=== PATIENT | male | born 1995 | race African-American/Black ===

== ENCOUNTER 2016-11-02 22:38 | Inpatient (IN) | payer MEDICAID ==
[~2016-11-02] VITALS: Ht 193 cm; Wt 100.3 kg
[~2016-11-02 22:38] MED LIST: DIVA500T69 PO; FLUO-191 PO; RISP3 PO; TRAZ-147 PO
[2016-11-02 23:48] LABS: BASOPHILS % (AUTO) 2.7 % (0.0-2.0); EOSINOPHILS % (AUTO) 3.3 % (1.0-6.0); HEMATOCRIT 45.8 % (41-53); LYMPHOCYTES # (AUTO) 2.8 K/uL (1.0-4.8); LYMPHOCYTES % (AUTO) 46.9 % (22.0-44.0); MEAN CORPUSCULAR HGB CONC 32.7 G/dL (31.0-37.0); MEAN CORPUSCULAR VOLUME 76 fL (80-100); MONOCYTES # (AUTO) 0.6 K/uL (0.1-1.0); MONOCYTES % (AUTO) 10.4 % (2.0-9.0); NEUTROPHILS # (AUTO) 2.2 K/uL (1.8-7.7); NEUTROPHILS % (AUTO) 36.7 % (40.0-70.0); PLATELET COUNT (AUTO) 261 K/uL (150-450); RED BLOOD CELL COUNT(AUTO) 5.99 MIL/uL (4.50-5.90); RED CELL DISTRIBUTION WIDTH 14.8 % (11.5-14.5)
[2016-11-02 23:56] LABS: ANION GAP 7 mmol/L (8-16); CALCIUM, TOTAL 9.6 mg/dL (8.8-10.5); CARBON DIOXIDE 27 mmol/L (22-29); CHLORIDE 103 mmol/L (98-107); CREATININE 1.05 mg/dL (0.60-1.30); GLOMERULAR FILTR. RATE CALC > 60 mL/min (>60); POTASSIUM 3.9 mmol/L (3.5-5.1); SODIUM SERUM 137 mmol/L (136-145); UREA NITROGEN, BLOOD 19 mg/dL (7-18)
[2016-11-03 00:02] LABS: ALANINE AMINOTRANSFERASE 18 U/L (12-78); ALBUMIN 4.3 g/dL (3.4-5.0); ASPARTATE AMINOTRANSFERASE 17 U/L (15-37); BILIRUBIN,TOTAL 0.4 mg/dL (0.1-1.0); TOTAL PROTEIN, SERUM 7.6 g/dL (6.4-8.2)
[2016-11-03 00:03] LABS: VALPROIC ACID < 3 mcg/mL (50-100)
[2016-11-03] MEDS ORDERED: LORazepam 2 MG/ML VIAL IM ONE (00:45)
[2016-11-03] MEDS ORDERED: DiphenhydrAMINE HCL 50 MG/ML VIAL IM ONE (00:45)
[2016-11-03] MEDS ORDERED: HALOPERIDOL LACTATE 5 MG/ML VIAL IM ONE (00:45)
[2016-11-03] MEDS ORDERED: ZOLPIDEM TARTRATE 10 MG TABLET PO PRN (01:00)
[2016-11-03 01:29] LABS: CHOL/HDL RATIO 3.5 (4.2-7.3)
[2016-11-03 14:49] VITALS: BP 123/61
[2016-11-03 16:00] VITALS: BP 124/67
[2016-11-03] MEDS: HALOPERIDOL 5 MG TABLET PO PRN (16:04)
[2016-11-03] MEDS: LORazepam 2 MG TABLET PO PRN (16:04)
[2016-11-03] MEDS: RisperiDONE 3 MG TABLET PO SCH (20:29)
[2016-11-03] MEDS: TraZODone HCL 100 MG TABLET PO SCH (20:29)
[2016-11-03] MEDS: DIVALPROEX SODIUM 500 MG DR TABLET PO SCH (20:29)
[2016-11-04 06:33] VITALS: BP 118/65
[2016-11-04 08:00] VITALS: BP 124/69
[2016-11-04] MEDS: FLUoxetine HCL 20 MG CAPSULE PO SCH (08:31)
[2016-11-04] MEDS: HALOPERIDOL 5 MG TABLET PO PRN (11:38)
[2016-11-04] MEDS: LORazepam 2 MG TABLET PO PRN ×2 (11:38→18:14)
[2016-11-04 16:00] VITALS: BP 130/72
[2016-11-04] MEDS: RisperiDONE 3 MG TABLET PO SCH (20:35)
[2016-11-04] MEDS: TraZODone HCL 100 MG TABLET PO SCH (20:35)
[2016-11-04] MEDS: DIVALPROEX SODIUM 500 MG DR TABLET PO SCH (20:35)
[2016-11-05 06:26] VITALS: BP 122/68
[2016-11-05 08:19] VITALS: BP 117/64
[2016-11-05] MEDS: FLUoxetine HCL 20 MG CAPSULE PO SCH (08:45)
[2016-11-05 16:00] VITALS: BP 127/75
[2016-11-05] MEDS: HALOPERIDOL 5 MG TABLET PO PRN (16:01)
[2016-11-05] MEDS: LORazepam 2 MG TABLET PO PRN (16:01)
[2016-11-05] MEDS: DIVALPROEX SODIUM 500 MG DR TABLET PO SCH (20:37)
[2016-11-05] MEDS: RisperiDONE 3 MG TABLET PO SCH (20:37)
[2016-11-05] MEDS: TraZODone HCL 100 MG TABLET PO SCH (20:38)
[2016-11-06 06:30] VITALS: BP 116/72
[2016-11-06] MEDS: FLUoxetine HCL 20 MG CAPSULE PO SCH (08:04)
[2016-11-06 08:34] VITALS: BP 124/66
[2016-11-06] MEDS ORDERED: DIVA500T35 PO (14:41)
== END 2016-11-06 15:50 | disposition home or self-care (01) | DRG 750 ==
LOC: EMS 22:40 → B3A 11-03 13:06
PROVIDERS: ADMIT Psychiatry & Neurology Child & Adolescent Psychiatry; ATTEND Psychiatry & Neurology Child & Adolescent Psychiatry
DX: F20.0 Paranoid schizophrenia (principal); F32.9 Major depressive disorder, single episode, unspecified; F41.9 Anxiety disorder, unspecified; F12.90 Cannabis use, unspecified, uncomplicated; G89.29 Other chronic pain; Z87.891 Personal history of nicotine dependence
CPT/HCPCS: G0480; J1200; J1630; J2060

== ENCOUNTER 2016-11-19 00:49 | Emergency (ER) | payer MEDICAID ==
[~2016-11-19] VITALS: Ht 193 cm; Wt 104.5 kg
[~2016-11-19 00:49] MED LIST changes: +DIVA500T35 PO; -DIVA500T69 PO
[2016-11-19 01:43] VITALS: BP 112/63
== END 2016-11-19 01:45 | disposition home or self-care (01) ==
LOC: EMS 00:50
DX: T63.391A Toxic effect of venom of other spider, accidental (unintentional), initial encounter (principal); F41.1 Generalized anxiety disorder; F17.210 Nicotine dependence, cigarettes, uncomplicated; F20.9 Schizophrenia, unspecified
CPT/HCPCS: 99283; 99406